=== PATIENT | male | born 1970 | race African-American/Black ===

== ENCOUNTER 2020-05-24 08:46 | Emergency (ER) | payer BC, MEDICAID ==
[~2020-05-24] VITALS: Ht 175.3 cm; Wt 87.4 kg
[~2020-05-24 08:46] MED LIST: LISINOPRIL
[2020-05-24 09:49] LABS: BASOPHILS % 1.3 % (0.0-2.0); EOSINOPHILS % 11.1 % (0.0-5.0); HEMATOCRIT. 42.8 % (42.0-52.0); HEMOGLOBIN. 14.3 g/dL (14.0-18.0); MEAN CORPUSCULAR VOLUME 86.9 fL (80.0-94.0); MEAN PLATELET VOLUME 7.6 fl (7.4-10.4); MONOCYTES % 10.6 % (2.0-8.0); PLATELET 313 x1000/uL (130-400); RED BLOOD CELL COUNT 4.92 mill/uL (4.7-6.1); RED CELL DISTRIBUTION WIDTH 14.2 % (11.6-14.6)
[2020-05-24 09:52] LABS: CHLORIDE 103 mEq/L (98-107)
[2020-05-24 09:55] LABS: PROTHROMBIN TIME 10.7 sec (9.6-11.0)
[2020-05-24 12:45] VITALS: BP 119/76
== END 2020-05-24 13:05 | disposition home or self-care (01) ==
LOC: ER 08:46
DX: R51.9 Headache, unspecified (principal); E11.9 Type 2 diabetes mellitus without complications; I10 Essential (primary) hypertension; Z87.891 Personal history of nicotine dependence
CPT/HCPCS: 36415; 71045; 80053; 82962; 84484; 85025; 93005; 99285